=== PATIENT | female | born 1985 | race African-American/Black ===

== ENCOUNTER 2022-06-13 22:25 | Emergency (ER) | payer OTHER ==
[~2022-06-13] VITALS: Ht 180.3 cm; Wt 91.0 kg
[2022-06-13 22:39] VITALS: BP 126/83
[2022-06-14] MEDS ORDERED: ONDANSETRON HCL 4MG TABLET PO ONE (06:15)
[2022-06-14] MEDS ORDERED: TOPUD PO (07:25)
[2022-06-14] MEDS ORDERED: ONDA4TAB50 PO (07:26)
== END 2022-06-14 08:03 | disposition home or self-care (01) ==
LOC: ER 22:25
DX: B34.9 Viral infection, unspecified (principal); Z20.822 Contact with and (suspected) exposure to COVID-19; Z91.041 Radiographic dye allergy status
CPT/HCPCS: 71045; 81025; 87426; 87804; 99284